=== PATIENT | male | born 1955 | race Caucasian/White ===

== ENCOUNTER → 2017-05-25 | Outpatient (CLI) | payer OTHER ==
[~2017-05-25] MED LIST: AMLODIPINE BESIL1 GM; LOW DOSE ASPIRI81 M1; METFORMIN HCL500 M2; PRAVACHOL20 MG; PRILOSEC20 MG; ZESTRIL10 M1 PO
--- NOTE | ~2017-05-25 | MR17 ---
[facility] A Service of [facility] & [facility] RADIOLOGY TEXT RESULTS PATIENT: JOSIE GOFF LOCATION: [facility] : 59 UNIT #: [id number] AGE: [address]: FIDELINA SUTHERLAND SEX: M ORDER DR: [id number] [place] [id number] O MR#: [id number] Acc #: [id number] NAME: JOSIE GOFF : 1955 SEX: M STUDY DATE/TIME: 05/25/2017 14:02 UNIT: [facility] ROOM: STUDY DESCRIPTION: MR Brain WWo Contrast Attending Physician: Fidelina Sutherland M.D. Referring Physician: Fidelina Sutherland M.D. Ordering Physician: Physician Non-Staff Primary Care Physician: Arnulfo Rodney M.D. MRI CENTER REPORT This report is preliminary unless electronic signature is present. EXAM Brain MRI with and without HISTORY 61-year-old male patient with new onset of headaches after age of 52. No known injury or brain surgery. Patient complains of constant daily frontal headaches for 9 months. No cancer history. TECHNIQUE MRI of the brain was performed prior to and following intravenous administration of 20 mL of MultiHance. FINDINGS There is no evidence for a recent ischemic insult on the diffusion series. Partly seen are degenerative changes in the visualized upper cervical spine. There is no Chiari-I malformation. There is no MRI evidence for intracranial hemorrhage. There is no extra axial fluid collection. The major intracranial flow voids are maintained. There is minimal fluid or inflammatory change in the mastoid air cells. Mild mucosal disease in the paranasal sinuses and an old left medial orbital wall fracture with deformity. There is no sinus air-fluid level. There is fairly extensive white matter signal abnormality for age group with too numerous to count areas seen in the subcortical deep and periventricular white matter. Following contrast administration there is no pathologic intracranial enhancement. No intracranial mass lesion is suspected. IMPRESSION 1. Fairly extensive white matter disease is identified for age group. This is nonspecific but please correlate for risk factors for small vessel disease. Less likely considerations would be sequelae of severe longstanding migraine, vasculitis, Lyme disease for myelination disease such as multiple sclerosis. 2. There is no intracranial mass effect, extraaxial fluid collection or STS. [facility] A Service of [facility] & [facility] RADIOLOGY TEXT RESULTS PATIENT: JOSIE GOFF LOCATION: [facility] : 59 UNIT #: [id number] AGE: [address]: FIDELINA SUTHERLAND SEX: M ORDER DR: pathologic intracranial enhancement. No recent ischemic insult is suspected. 3. Partly seen is cervical spine degenerative disease. 1. Dictated by... Sabina Todd M.D. THIS IS AN ELECTRONICALLY VERIFIED REPORT Sabina Todd M.D. at 05/26/2017 7:18 AM [place] TD: 05/25/2017 18:07 JOB #: [id number] MRI CENTER REPORT Page 1 of 1
== END | disposition home or self-care (01) ==
LOC: SMRI 13:19
DX: R51 Headache (principal); R90.82 White matter disease, unspecified; M50.30 Other cervical disc degeneration, unspecified cervical region
CPT/HCPCS: 70553; A9581